=== PATIENT | male | born 1960 | race Caucasian/White ===

== ENCOUNTER 2017-07-27 19:19 | Emergency (ER) | payer SELFPAY ==
[~2017-07-27] VITALS: Ht 162.6 cm; Wt 82.0 kg
[2017-07-28] MEDS ORDERED: IBUPROFEN 600MG TABLET PO ONE (00:30)
[2017-07-28] MEDS ORDERED: PREDNISONE 20MG TABLET PO ONE (00:30)
[2017-07-28 00:42] VITALS: BP 135/81
== END 2017-07-28 00:59 | disposition home or self-care (01) ==
LOC: ER 20:15
DX: H60.93 Unspecified otitis externa, bilateral (principal); H01.009 Unspecified blepharitis unspecified eye, unspecified eyelid; M25.561 Pain in right knee
CPT/HCPCS: 99283; J7512

== ENCOUNTER 2017-11-30 10:31 | Emergency (ER) | payer SELFPAY ==
[~2017-11-30] VITALS: Ht 160 cm; Wt 82.0 kg
[2017-11-30] MEDS ORDERED: FAMOTIDINE 20MG/2ML VIAL IV STA (13:55)
[2017-11-30] MEDS ORDERED: MORPHINE SULFATE 4 MG/ML CPJ (NOT FOR IM USE) IV STA (13:55)
[2017-11-30] MEDS ORDERED: ONDANSETRON HCL 4MG/2ML INJ IV STA (13:55)
[2017-11-30] MEDS ORDERED: SODIUM CHLORIDE 0.9% 1,000 ML IV ONE (13:55)
[2017-11-30 14:40] LABS: CLARITY URINE CLOUDY (CLEAR); COLOR URINE ORANGE (YELLOW); KETONES URINE NEGATIVE (NEGATIVE); LEUKOCYTE ESTERASE URINE 1+ (NEGATIVE); NITRITE URINE NEGATIVE (NEGATIVE); OCCULT BLOOD URINE 3+ (NEGATIVE); PH URINE 6.5 (4.5-8.0); PROTEIN URINE 1+ (NEGATIVE); SPECIFIC GRAVITY URINE 1.017 (1.005-1.030); UROBILINOGEN URINE 0.2 E.U./dL (0.2-1.0)
[2017-11-30 14:43] LABS: CHLORIDE 103 mEq/L (98-107)
[2017-11-30 14:47] LABS: BASOPHILS % 2.4 % (0.0-2.0); EOSINOPHILS % 5.6 % (0.0-5.0); HEMATOCRIT. 40.1 % (42.0-52.0); HEMOGLOBIN. 12.6 g/dL (14.0-18.0); LYMPHOCYTES % 33.8 % (20.0-50.0); MEAN CORPUSCULAR VOLUME 66.6 fL (80.0-94.0); MONOCYTES % 7.8 % (2.0-8.0); NEUTROPHILS % 50.4 % (40.0-76.0); PLATELET 308 x1000/uL (130-400); RED BLOOD CELL COUNT 6.02 mill/uL (4.7-6.1); RED CELL DISTRIBUTION WIDTH 16.5 % (11.6-14.6)
[2017-11-30 14:49] LABS: ETHANOL BLOOD < 10 mg/dL
[2017-11-30 15:36] LABS: PLATELET ESTIMATE NORMAL
[2017-11-30 15:49] LABS: *AMPHETAMINES SCREEN URINE PRESUMTIVE POSITIVE (NEGATIVE); *BARBITURATES SCREEN URINE NEGATIVE (NEGATIVE); *BENZODIAZEPINES SCREEN URINE NEGATIVE (NEGATIVE); *COCAINE SCREEN URINE NEGATIVE (NEGATIVE); CANNABINOID URINE SCREEN NEGATIVE (NEGATIVE); METHADONE URINE SCREEN NEGATIVE (NEGATIVE); OPIATES URINE SCREEN NEGATIVE (NEGATIVE); PHENCYCLIDINE URINE SCREEN NEGATIVE (NEGATIVE)
[2017-11-30] MEDS ORDERED: KETOROLAC 30MG/ML VIAL IV ONE (17:15)
[2017-11-30 18:26] VITALS: BP 140/89
== END 2017-11-30 18:35 | disposition home or self-care (01) ==
LOC: ER 10:31 → CANBEDREQ 18:27 → ER 18:35
DX: R10.32 Left lower quadrant pain (principal); N30.90 Cystitis, unspecified without hematuria; I10 Essential (primary) hypertension
CPT/HCPCS: 36415; 71045; 74176; 80053; 80305; 81003; 83605; 83690; 83880; 84484; 85025; 85610; 87040; 87086; 93005; 96361; 96374; 96375; 99285; G0482; J1885; J2270; J2405; J3490; J7030